=== PATIENT | female | born 1940 | race Caucasian/White ===

== ENCOUNTER 2017-03-31 10:17 | Emergency (ER) | payer OTHER, MEDICAID ==
[~2017-03-31 10:17] MED LIST: COZ25 PO; FOSAMAX70 MG PO; LOP50 PO; LOVASTATIN20 MG PO; PRI20 PO
[2017-03-31 11:50] LABS: CALCIUM 8.7 mg/dL (8.5-10.1); CARBON DIOXIDE 25.9 mmol/L (21-32); CHLORIDE SERUM 114 mmol/L (98-107); CREATININE SERUM 0.8 mg/dL (0.6-1.0); GLUCOSE SERUM 91 mg/dL (74-106); POTASSIUM SERUM 3.2 mmol/L (3.5-5.1); SODIUM SERUM 145 mmol/L (136-145)
[2017-03-31 11:54] LABS: BASOPHIL % 0.5 % (0-2); RED CELL DISTRIBUTION WIDTH 13.5 % (11.5-14.5)
[2017-03-31 11:56] LABS: ALKALINE PHOSPHATASE 192 U/L (46-116); ALT/SGPT 38 U/L (14-59); AST/SGOT 40 U/L (15-37); TOTAL PROTEIN, SERUM 7.7 g/dL (6.4-8.2)
[2017-03-31 11:57] LABS: PLATELET COUNT 101 x10^3mcL (130-400)
[2017-03-31 12:01] LABS: ALBUMIN 3.1 g/dL (3.4-5.0)
[2017-03-31 12:36] VITALS: BP 141/96
== END 2017-03-31 12:36 | disposition home or self-care (01) ==
LOC: ED 10:17
PROVIDERS: Emergency Medicine
DX: R14.0 Abdominal distension (gaseous) (principal); N39.0 Urinary tract infection, site not specified; I10 Essential (primary) hypertension; Z90.49 Acquired absence of other specified parts of digestive tract; Z79.899 Other long term (current) drug therapy
CPT/HCPCS: 36415

== ENCOUNTER 2017-06-03 09:07 | Emergency (ER) | payer OTHER, MEDICAID ==
[~2017-06-03] VITALS: Ht 157.5 cm; Wt 55.8 kg
[2017-06-03 09:10] VITALS: BP 156/55
== END 2017-06-03 10:57 | disposition home or self-care (01) ==
LOC: ED 09:07
DX: K60.2 Anal fissure, unspecified (principal); K64.8 Other hemorrhoids; I10 Essential (primary) hypertension; E78.00 Pure hypercholesterolemia, unspecified

== ENCOUNTER 2018-07-23 15:36 | Inpatient (IN) | payer OTHER, MEDICAID ==
[~2018-07-23] VITALS: Ht 157.5 cm; Wt 44.0 kg
[~2018-07-23 15:36] MED LIST changes: +FOSAMAX70 M1; -FOSAMAX70 MG PO
[2018-07-23 15:42] VITALS: Ht 157.5 cm; Wt 44.0 kg
[2018-07-23 17:18] LABS: BASOPHIL % 0.4 % (0-2)
[2018-07-23 17:21] LABS: PLATELET COUNT 99 x10^3mcL (130-400); RED CELL DISTRIBUTION WIDTH 15.9 % (11.5-14.5)
[2018-07-23 17:30] LABS: ALKALINE PHOSPHATASE 177 U/L (46-116); ALT/SGPT 56 U/L (14-59); AST/SGOT 47 U/L (15-37); BILIRUBIN TOTAL 1.35 mg/dL (0.20-1.00); CALCIUM 9.4 mg/dL (8.5-10.1); CARBON DIOXIDE 25.8 mmol/L (21-32); CHLORIDE SERUM 107 mmol/L (98-107); CHOLESTEROL 146 mg/dL (<200); CHOLESTEROL/HDL RATIO 2.9; CREATININE SERUM 1.6 mg/dL (0.6-1.0); GLUCOSE SERUM 138 mg/dL (74-106); HDL CHOLESTEROL 51 mg/dL (40-60); LIPASE 429 IU/L (73-393); SODIUM SERUM 136 mmol/L (136-145); TRIGLYCERIDES 59 mg/dL (<150)
[2018-07-23 17:30] LABS: UA SPECIFIC GRAVITY 1.015 (1.005-1.035); microscopic required? YES; urine erythrocyte 1+ (NEGATIVE)
[2018-07-23 17:31] LABS: ALBUMIN 2.7 g/dL (3.4-5.0); TOTAL PROTEIN, SERUM 8.4 g/dL (6.4-8.2)
[2018-07-23 17:48] LABS: FREE T4 1.46 ng/dL (0.76-1.46); FREE THYROXINE INDEX 4.1 ug/dL (1.4-4.5); T4(THYROXINE) 10.7 ug/dL (4.7-13.3)
[2018-07-23] MEDS ORDERED: ALDACTONE50 MG PO (18:41)
[2018-07-23] MEDS ORDERED: FUROSEMIDE40 MG PO (18:41)
[2018-07-23 18:48] LABS: MAGNESIUM 2.5 mg/dL (1.8-2.4); PHOSPHOROUS 3.5 mg/dL (2.5-4.9)
[2018-07-23 18:53] LABS: AMPHETAMINE QUAL UR NONE DETECTED (See below)
[2018-07-23 19:25] LABS: T3 TOTAL 0.76 ng/mL
[2018-07-23 19:53] VITALS: BP 120/46
[2018-07-24 05:39] VITALS: BP 132/45
[2018-07-24 06:46] LABS: BASOPHIL % 0.3 % (0-2)
[2018-07-24 06:52] LABS: PLATELET COUNT 77 x10^3mcL (130-400); RED CELL DISTRIBUTION WIDTH 15.8 % (11.5-14.5)
[2018-07-24 07:04] LABS: CARBON DIOXIDE 19.2 mmol/L (21-32); CHLORIDE SERUM 113 mmol/L (98-107); CREATININE SERUM 1.4 mg/dL (0.6-1.0); GLUCOSE SERUM 92 mg/dL (74-106); LIPASE 247 IU/L (73-393); MAGNESIUM 1.9 mg/dL (1.8-2.4); PHOSPHOROUS 4.1 mg/dL (2.5-4.9); SODIUM SERUM 141 mmol/L (136-145)
[2018-07-24 09:40] VITALS: BP 126/49
[2018-07-24 13:36] VITALS: BP 144/43
[2018-07-24 13:48] LABS: POTASSIUM SERUM 5.8 mmol/L (3.5-5.1)
[2018-07-24 17:59] VITALS: BP 139/46
[2018-07-24 21:44] VITALS: BP 136/61
[2018-07-25 05:55] VITALS: BP 120/44
[2018-07-25 07:04] LABS: BASOPHIL % 0.5 % (0-2)
[2018-07-25 07:10] LABS: PLATELET COUNT 66 x10^3mcL (130-400)
[2018-07-25 07:21] LABS: ALKALINE PHOSPHATASE 141 U/L (46-116); ALT/SGPT 57 U/L (14-59); AST/SGOT 54 U/L (15-37); BILIRUBIN DIRECT 0.65 mg/dL (0.0-0.2); BILIRUBIN TOTAL 1.39 mg/dL (0.20-1.00); CALCIUM 8.2 mg/dL (8.5-10.1); CARBON DIOXIDE 19.8 mmol/L (21-32); CHLORIDE SERUM 111 mmol/L (98-107); CREATININE SERUM 1.3 mg/dL (0.6-1.0); GLUCOSE SERUM 89 mg/dL (74-106); LIPASE 377 IU/L (73-393); MAGNESIUM 1.8 mg/dL (1.8-2.4); PHOSPHOROUS 3.6 mg/dL (2.5-4.9); POTASSIUM SERUM 4.3 mmol/L (3.5-5.1); SODIUM SERUM 140 mmol/L (136-145); TOTAL PROTEIN, SERUM 6.4 g/dL (6.4-8.2)
[2018-07-25 07:43] LABS: ALBUMIN 2.1 g/dL (3.4-5.0); AMYLASE 125 U/L (25-115)
[2018-07-25 09:33] VITALS: BP 123/41
[2018-07-25 13:23] VITALS: BP 125/49
[2018-07-25 17:03] VITALS: BP 121/43
[2018-07-25 19:20] VITALS: BP 121/40
[2018-07-26 06:11] VITALS: BP 121/44
[2018-07-26 09:21] VITALS: BP 125/39
[2018-07-26 13:52] VITALS: BP 128/36
[2018-07-26 15:12] VITALS: BP 128/36
[2018-07-26] MEDS ORDERED: LAC30L PO (15:39)
[2018-07-26 16:29] VITALS: BP 126/41
== END 2018-07-26 18:27 | disposition home or self-care (01) | DRG 441 ==
LOC: ED 15:36 → DU 18:21
PROVIDERS: General Practice; Specialist
DX: K72.90 Hepatic failure, unspecified without coma (principal); N17.0 Acute kidney failure with tubular necrosis; K85.90 Acute pancreatitis without necrosis or infection, unspecified; G93.41 Metabolic encephalopathy; N39.0 Urinary tract infection, site not specified; K74.60 Unspecified cirrhosis of liver; K52.9 Noninfective gastroenteritis and colitis, unspecified; E87.5 Hyperkalemia; E83.41 Hypermagnesemia; E86.0 Dehydration; I10 Essential (primary) hypertension; Z68.21 Body mass index [BMI] 21.0-21.9, adult
CPT/HCPCS: 36600; 83880; 84439; 87046; 87046-59; 87804; 90658; 90732; J0696; J1815; J3490; J7030; J7050; Q0092

== ENCOUNTER 2018-08-07 19:15 | Emergency (ER) | payer OTHER, MEDICAID ==
[~2018-08-07] VITALS: Ht 147.3 cm; Wt 49.0 kg
[~2018-08-07 19:15] MED LIST changes: +ALDACTONE50 MG PO; +FUROSEMIDE40 MG PO; +LAC30L PO
[2018-08-07 19:25] VITALS: Ht 147.3 cm; Wt 49.0 kg
[2018-08-07 20:42] LABS: BASOPHIL % 0.8 % (0-2)
[2018-08-07 20:48] LABS: PLATELET COUNT 103 x10^3mcL (130-400); RED CELL DISTRIBUTION WIDTH 17.2 % (11.5-14.5)
[2018-08-07 20:58] LABS: CALCIUM 8.2 mg/dL (8.5-10.1); CARBON DIOXIDE 24.1 mmol/L (21-32); CHLORIDE SERUM 112 mmol/L (98-107); CREATININE SERUM 0.9 mg/dL (0.6-1.0); GLUCOSE SERUM 98 mg/dL (74-106); POTASSIUM SERUM 5.2 mmol/L (3.5-5.1); SODIUM SERUM 141 mmol/L (136-145)
[2018-08-07 21:11] LABS: ALBUMIN 2.2 g/dL (3.4-5.0); ALKALINE PHOSPHATASE 188 U/L (46-116); ALT/SGPT 47 U/L (14-59); AST/SGOT 50 U/L (15-37); BILIRUBIN TOTAL 0.83 mg/dL (0.20-1.00); TOTAL PROTEIN, SERUM 6.8 g/dL (6.4-8.2)
[2018-08-07 22:20] VITALS: BP 124/54
== END 2018-08-07 22:20 | disposition home or self-care (01) ==
LOC: ED 19:15
PROVIDERS: Emergency Medicine
DX: R06.00 Dyspnea, unspecified (principal); R53.1 Weakness; I10 Essential (primary) hypertension
CPT/HCPCS: 36415; 83880; Q0092

== ENCOUNTER 2018-09-19 16:43 | Inpatient (IN) | payer OTHER, BC ==
[~2018-09-19] VITALS: Ht 157.5 cm; Wt 46.8 kg
[2018-09-19 19:05] LABS: microscopic required? YES; urine erythrocyte TRACE (NEGATIVE)
[2018-09-19 19:43] LABS: ALKALINE PHOSPHATASE 170 U/L (46-116); ALT/SGPT 29 U/L (14-59); AMYLASE 106 U/L (25-115); AST/SGOT 33 U/L (15-37); BILIRUBIN TOTAL 0.67 mg/dL (0.20-1.00); CALCIUM 9.2 mg/dL (8.5-10.1); CARBON DIOXIDE 28.3 mmol/L (21-32); CHLORIDE SERUM 113 mmol/L (98-107); CHOLESTEROL 149 mg/dL (<200); CREATININE SERUM 1.2 mg/dL (0.6-1.0); GLUCOSE SERUM 118 mg/dL (74-106); HDL CHOLESTEROL 36 mg/dL (40-60); LIPASE 386 IU/L (73-393); POTASSIUM SERUM 3.9 mmol/L (3.5-5.1); SODIUM SERUM 149 mmol/L (136-145); T4(THYROXINE) 8.6 ug/dL (4.7-13.3); TOTAL PROTEIN, SERUM 7.2 g/dL (6.4-8.2)
[2018-09-19 19:45] LABS: ALBUMIN 2.2 g/dL (3.4-5.0)
[2018-09-19 20:27] LABS: BASOPHIL % 0.7 % (0-2)
[2018-09-19 20:28] LABS: PLATELET COUNT 70 x10^3mcL (130-400); RED CELL DISTRIBUTION WIDTH 15.2 % (11.5-14.5)
[2018-09-19] MEDS ORDERED: LISINOPRIL10 MG PO (21:00)
[2018-09-19] MEDS ORDERED: PROMETHAZI6.25 MG/5 PO (21:00)
[2018-09-19 22:05] LABS: PHOSPHOROUS 4.3 mg/dL (2.5-4.9)
[2018-09-19 22:19] VITALS: BP 113/42
[2018-09-19 22:25] VITALS: Ht 157.5 cm; Wt 46.8 kg
[2018-09-20 02:46] VITALS: BP 116/44
[2018-09-20 05:11] VITALS: BP 118/46
[2018-09-20 06:15] LABS: CARBON DIOXIDE 26.4 mmol/L (21-32); CHLORIDE SERUM 114 mmol/L (98-107); CREATININE SERUM 1.3 mg/dL (0.6-1.0); GLUCOSE SERUM 144 mg/dL (74-106); MAGNESIUM 1.8 mg/dL (1.8-2.4); PHOSPHOROUS 4.2 mg/dL (2.5-4.9); POTASSIUM SERUM 4.3 mmol/L (3.5-5.1); SODIUM SERUM 148 mmol/L (136-145)
[2018-09-20 06:29] LABS: BASOPHIL % 0.1 % (0-2); PLATELET COUNT 64 x10^3mcL (130-400); RED CELL DISTRIBUTION WIDTH 15.7 % (11.5-14.5)
[2018-09-20 07:55] VITALS: BP 138/52
[2018-09-20 12:07] VITALS: BP 120/40
[2018-09-20 16:43] VITALS: BP 136/40
[2018-09-20 19:15] VITALS: BP 117/57
[2018-09-21 05:54] VITALS: BP 110/38
[2018-09-21 06:58] LABS: BASOPHIL % 0.2 % (0-2)
[2018-09-21 07:03] LABS: PLATELET COUNT 69 x10^3mcL (130-400); RED CELL DISTRIBUTION WIDTH 15.7 % (11.5-14.5)
[2018-09-21 07:16] LABS: CALCIUM 7.9 mg/dL (8.5-10.1); CARBON DIOXIDE 27.5 mmol/L (21-32); CHLORIDE SERUM 115 mmol/L (98-107); CREATININE SERUM 1.3 mg/dL (0.6-1.0); GLUCOSE SERUM 77 mg/dL (74-106); MAGNESIUM 1.9 mg/dL (1.8-2.4); PHOSPHOROUS 4.2 mg/dL (2.5-4.9); POTASSIUM SERUM 4.2 mmol/L (3.5-5.1); SODIUM SERUM 149 mmol/L (136-145)
[2018-09-21 07:23] VITALS: BP 116/42
[2018-09-21 11:47] VITALS: BP 111/47
[2018-09-21 16:33] VITALS: BP 132/54
[2018-09-21 19:15] VITALS: BP 113/43
[2018-09-22 05:07] VITALS: BP 106/53
[2018-09-22 06:51] LABS: CALCIUM 7.8 mg/dL (8.5-10.1); CARBON DIOXIDE 27.7 mmol/L (21-32); CHLORIDE SERUM 113 mmol/L (98-107); CREATININE SERUM 1.3 mg/dL (0.6-1.0); GLUCOSE SERUM 82 mg/dL (74-106); MAGNESIUM 1.9 mg/dL (1.8-2.4); PHOSPHOROUS 3.4 mg/dL (2.5-4.9); POTASSIUM SERUM 3.9 mmol/L (3.5-5.1); SODIUM SERUM 145 mmol/L (136-145)
[2018-09-22 07:26] LABS: BASOPHIL % 0.3 % (0-2); PLATELET COUNT 55 x10^3mcL (130-400); RED CELL DISTRIBUTION WIDTH 16.3 % (11.5-14.5)
[2018-09-22 09:21] VITALS: BP 117/38
[2018-09-22 12:09] VITALS: BP 119/41
[2018-09-22 12:36] VITALS: BP 128/47
[2018-09-22 15:39] LABS: APPEARANCE FLUID CLOUDY; SOURCE FLUID THORACENTESIS
[2018-09-22 15:40] LABS: COLOR FLUID YELLOW; RBC FLUID 1666.7 /cumm; WBC FLUID 86.7 /cumm
[2018-09-22 15:45] LABS: LYMPHOCYTE FLUID 92 %; MONOCYTE FLUID 2 %
[2018-09-22 17:04] VITALS: BP 115/35
[2018-09-22 21:56] VITALS: BP 114/33
[2018-09-23 06:08] VITALS: BP 106/34
[2018-09-23 10:40] VITALS: BP 118/50
[2018-09-23 15:37] VITALS: BP 100/58
[2018-09-23 17:23] VITALS: BP 114/34
[2018-09-23 20:55] VITALS: BP 110/39
[2018-09-24 06:12] VITALS: BP 125/47
[2018-09-24 09:06] LABS: BASOPHIL % 0.4 % (0-2)
[2018-09-24 09:07] LABS: PLATELET COUNT 60 x10^3mcL (130-400); RED CELL DISTRIBUTION WIDTH 15.8 % (11.5-14.5)
[2018-09-24 09:17] VITALS: BP 128/59
[2018-09-24 09:32] LABS: CALCIUM 8.1 mg/dL (8.5-10.1); CARBON DIOXIDE 28.1 mmol/L (21-32); CHLORIDE SERUM 110 mmol/L (98-107); CREATININE SERUM 1.6 mg/dL (0.6-1.0); GLUCOSE SERUM 127 mg/dL (74-106); POTASSIUM SERUM 5.1 mmol/L (3.5-5.1); SODIUM SERUM 143 mmol/L (136-145)
[2018-09-24 13:11] VITALS: BP 108/34
[2018-09-24] MEDS ORDERED: LEVAQUIN750 MG PO (15:01)
[2018-09-24 16:53] VITALS: BP 109/36
[2018-09-24 17:50] VITALS: BP 109/36
== END 2018-09-24 19:00 | disposition home or self-care (01) | DRG 193 ==
LOC: ED 16:43 → DU 21:39
PROVIDERS: Emergency Medicine; Family Medicine; ADMIT Internal Medicine
PROC: 0W993ZZ Drainage of Right Pleural Cavity, Percutaneous Approach (ICD-10-PCS; principal; 2018-09-22)
DX: J18.1 Lobar pneumonia, unspecified organism (principal); J96.01 Acute respiratory failure with hypoxia; N17.0 Acute kidney failure with tubular necrosis; E43 Unspecified severe protein-calorie malnutrition; J91.8 Pleural effusion in other conditions classified elsewhere; E87.0 Hyperosmolality and hypernatremia; E72.4 Disorders of ornithine metabolism; Z68.1 Body mass index [BMI] 19.9 or less, adult; N18.3 Chronic kidney disease, stage 3 (moderate); K72.90 Hepatic failure, unspecified without coma; I12.9 Hypertensive chronic kidney disease with stage 1 through stage 4 chronic kidney disease, or unspecified chronic kidney disease; E86.0 Dehydration; K74.60 Unspecified cirrhosis of liver
CPT/HCPCS: 32555; 36600; 82962; 83880; 85378; 87116; 87206; 87804; 94150; 97110-GP; 97116-GP; 97530-GP; C1729; J1956; J2543; J2930; J7613; J7620; J7644; Q0092; Q9967